=== PATIENT | male | born 1950 | race Caucasian/White ===

== ENCOUNTER 2021-09-16 11:25 | Emergency (ER) | payer OTHER ==
[2021-09-16] MEDS ORDERED: NALOXONE 0.4 MG/ML 1 ML VIAL IVP STA (11:27)
[2021-09-16] MEDS ORDERED: NALOXONE 0.4 MG/ML 10 ML VIAL IVP PRN (11:30)
[2021-09-16] MEDS ORDERED: SUCCINYLCHOLINE CHLORIDE 200 MG/10 ML VIAL IV STA (11:32)
[2021-09-16] MEDS ORDERED: MIDAZOLAM 1 MG/ML 5 ML VIAL IV STA ×3 (11:32→12:47)
[2021-09-16 11:36] LABS: Glucose,Whole Blood 122 mg/dL (70-110)
[2021-09-16] MEDS ORDERED: SODIUM CHLORIDE 0.9% 500 ML 500 ML IV STA (11:46)
--- NOTE | 2021-09-16 12:01 | XR ---
EXAMINATION TYPE: XR chest 1V portable DATE OF EXAM: 09/16/2021 COMPARISON: NONE HISTORY: Postintubation TECHNIQUE: Single frontal view of the chest is obtained. FINDINGS: ET tube approximately 2.3 cm above jaleesa. Right-sided Mediport with the tip overlying the SVC and no pneumothorax. Left basilar consolidation and small effusion. Suspect underlying COPD and chronic interstitial lung disease. Heart size normal. Prominent bowel loops in the upper abdomen nons pecific. IMPRESSION: 1. Left basilar atelectasis or infiltrate with findings suggestive of COPD and probable chronic inter stitial lung disease. 2. ET tube 2.3 cm above jaleesa
[2021-09-16 12:15] LABS: Basophils % (A) 0 %; Eosinophils # (A) 0.1 k/uL (0-0.7); Eosinophils % (A) 1 %; HCT 51.5 % (39.0-53.0); HGB 15.8 gm/dL (13.0-17.5); Hypochromasia Slight; Lymphocytes # (A) 0.9 k/uL (1.0-4.8); Lymphocytes % (A) 4 %; MCH 29.9 pg (25.0-35.0); MCHC 30.7 g/dL (31.0-37.0); MCV 97.4 fL (80.0-100.0); Mean Platelet Volume 7.3; Monocytes % (A) 5 %; Neutrophils # (A) 17.8 k/uL (1.3-7.7); Neutrophils % (A) 89 %; Platelet Count 417 k/uL (150-450); RBC 5.28 m/uL (4.30-5.90); RDW 13.6 % (11.5-15.5); WBC 19.9 k/uL (3.8-10.6)
[2021-09-16 12:24] LABS: Partial Thromboplastin Time 23.5 sec (22.0-30.0); Prothrombin Time 10.9 sec (9.0-12.0)
[2021-09-16 12:33] LABS: Albumin 3.9 g/dL (3.5-5.0); Calcium 9.3 mg/dL (8.4-10.2); Magnesium 2.2 mg/dL (1.6-2.3); Potassium 5.7 mmol/L (3.5-5.1); Total Bilirubin 0.5 mg/dL (0.2-1.3); Total Protein 7.2 g/dL (6.3-8.2)
[2021-09-16] MEDS ORDERED: SODIUM CHLORIDE 0.9% 1,000 ML IV ONE ×2 (12:36→14:00)
[2021-09-16 12:42] LABS: ABG Base Excess 0.4 mmol/L; ABG HCO3 29 mmol/L (21-25); ABG PO2 320 mmHg (83-108); ABG TCO2 31 mmol/L (19-24); Allen Test Performed? Yes
--- NOTE | 2021-09-16 13:07 | ED ---
General Adult HPI - General Chief complaint: Shortness of Breath Stated complaint: ALCIDES Time Seen by Provider: 09/16/21 11:25 Source: patient, EMS, RN notes reviewed, old records reviewed Mode of arrival: EMS Limitations: altered mental status - History of Present Illness Initial comments: This is a 71-year-old male who presents to the emergency department we were told he had esophageal cancer and just had a port placed yesterday. Patient was found unresponsive this morning by his roommate and having uneven respirations. When EMS arrived he did not respond to them either and he continued to have slight apneic spells with very uneven respiratory rate. No further history was available at this time. - Related Data Home Medications Medication Instructions Recorded Confirmed Republic Carbonate ER [Lithobid] 675 mg PO DAILY 09/16/21 09/16/21 OLANZapine 15 mg PO HS 09/16/21 09/16/21 Ondansetron [Zofran] 4 mg PO Q8H PRN 09/16/21 09/16/21 Pantoprazole [Protonix] 40 mg PO DAILY 09/16/21 09/16/21 oxyCODONE HCL [oxyCODONE HCL (IR)] 10 mg PO Q6H PRN 09/16/21 09/16/21 Allergies Allergy/AdvReac Type Severity Reaction Status Date / Time No Known Allergies Allergy Unverified 09/16/21 13:25 Review of Systems ROS Statement: Those systems with pertinent positive or pertinent negative responses have been documented in the HPI. ROS Other: All systems not noted in ROS Statement are negative. Past Medical History Additional Past Medical History / Comment(s): esophageal cancer History of Any Multi-Drug Resistant Organisms: Unobtainable Past Surgical History: No Surgical Hx Reported Past Psychological History: Unable to Obtain Smoking Status: Unknown if ever smoked Past Alcohol Use History: Unable to Obtain Past Drug Use History: Unable to Obtain General Exam - General Exam Comments Initial Comments: GENERAL: Patient is well-developed and well-nourished. Patient is nontoxic and well- hydrated and is in moderate distress. ENT: Neck is soft and supple. No significant lymphadenopathy is noted. Oropharynx is clear. Moist mucous membranes. Neck has full range of motion without eliciting any pain. EYES: The sclera were anicteric and conjunctiva were pink and moist. Extraocular movements were intact and pupils were equal round and reactive to light. Eyelids were unremarkable. PULMONARY: Labored respirations with periodic apneic spells for 58 seconds. CARDIOVASCULAR: There is a regular rate and rhythm without any murmurs gallops or rubs. ABDOMEN: Soft and nontender with normal bowel sounds. SKIN: Skin is clear with no lesions or rashes and otherwise unremarkable. NEUROLOGIC: Patient is alert and oriented 0 unable to follow even simple commands. MUSCULOSKELETAL: Normal extremities with adequate strength and full range of motion. No lower extremity swelling or edema. No calf tenderness. LYMPHATICS: No significant lymphadenopathy is noted PSYCHIATRIC: Unable to assess Limitations: altered mental status Course Vital Signs 09/16/21 09/16/21 09/16/21 11:26 11:27 11:30 Temperature Pulse Rate 92 Respiratory 8 L 8 L 10 L Rate Blood Pressure 95/73 O2 Sat by Pulse 89 L Oximetry Fraction of Inspired Oxygen (FIO2) 09/16/21 09/16/21 09/16/21 11:55 12:07 12:14 Temperature Pulse Rate 107 H Respiratory 12 20 Rate Blood Pressure 100/69 O2 Sat by Pulse 100 Oximetry Fraction of 100 100 Inspired Oxygen (FIO2) 09/16/21 09/16/21 09/16/21 12:18 12:27 12:37 Temperature 97.6 F Pulse Rate 101 H 101 H 97 Respiratory 12 12 12 Rate Blood Pressure 86/62 80/70 98/73 O2 Sat by Pulse 100 100 100 Oximetry Fraction of Inspired Oxygen (FIO2) 09/16/21 09/16/21 09/16/21 12:47 12:50 12:57 Temperature Pulse Rate 98 100 Respiratory 12 16 Rate Blood Pressure 92/73 95/61 O2 Sat by Pulse 100 100 Oximetry Fraction of 75 Inspired Oxygen (FIO2) 09/16/21 09/16/21 09/16/21 13:27 13:30 14:00 Temperature Pulse Rate 92 73 Respiratory 16 18 Rate Blood Pressure 87/66 70/50 O2 Sat by Pulse 99 96 Oximetry Fraction of 60 Inspired Oxygen (FIO2) 09/16/21 09/16/21 09/16/21 14:22 14:25 14:31 Temperature Pulse Rate 85 75 Respiratory 18 18 Rate Blood Pressure 87/58 99/76 O2 Sat by Pulse 97 100 Oximetry Fraction of 100 Inspired Oxygen (FIO2) 09/16/21 09/16/21 15:16 15:20 Temperature Pulse Rate 67 Respiratory 18 Rate Blood Pressure 99/74 O2 Sat by Pulse 99 Oximetry Fraction of 100 Inspired Oxygen (FIO2) Procedures - Procedures Initial comment: I got blood for an ABG femoral right femoral artery. - Intubation Sedative: Versed Paralytic: Succinylcholine Laryngoscope: Coon Size: 3 ET Tube Size: 7.5 Tube Secured Location: teeth Tube Placement Confirmation: visualized tube passing through cords, equal breath sounds bilaterally, no breath sounds over epigastrium, confirmation by capnometry Patient Tolerated Procedure: well Intubation Complications: none Medical Decision Making - Medical Decision Making Patient's sugar was checked it was in the normal range. Patient was also given Narcan it had no effect. Patient continued to have very uneven respirations with apneic periods. Patient was satting in the high 80s. At this point time I intubated the patient. EKG shows sinus rhythm at 89 bpm TN interval 235 QRS is 170 QT interval 380 QTC is 427. Patient's EKG shows no ST segment Patient started on 2 g of Rocephin. Patient received 2 L of IV fluid. Patient's started on Levophed because patient started becoming hypotensive.. Family indicated to me that the patient is a no CPR no trach and no feeding tube. I spoke with Dr. Diaz at [facility] and he accepted the transfer - Lab Data Result diagrams: 09/16/21 12:05 09/16/21 12:05 Lab Results 09/16/21 09/16/21 09/16/21 Range/Units 11:30 12:05 12:05 WBC 19.9 H (3.8-10.6) k/uL RBC 5.28 (4.30-5.90) m/uL Hgb 15.8 (13.0-17.5) gm/dL Hct 51.5 (39.0-53.0) % MCV 97.4 (80.0-100.0) fL MCH 29.9 (25.0-35.0) pg MCHC 30.7 L (31.0-37.0) g/dL RDW 13.6 (11.5-15.5) % Plt Count 417 (150-450) k/uL MPV 7.3 Neutrophils % 89 % Lymphocytes % 4 % Monocytes % 5 % Eosinophils % 1 % Basophils % 0 % Neutrophils # 17.8 H (1.3-7.7) k/uL Lymphocytes # 0.9 L (1.0-4.8) k/uL Monocytes # 1.0 (0-1.0) k/uL Eosinophils # 0.1 (0-0.7) k/uL Basophils # 0.0 (0-0.2) k/uL Hypochromasia Slight PT 10.9 (9.0-12.0) sec INR 1.0 (<1.2) APTT 23.5 (22.0-30.0) sec Sample Site ABG pH (7.35-7.45) ABG pCO2 (35-45) mmHg ABG pO2 (83-108) mmHg ABG HCO3 (21-25) mmol/L ABG Total CO2 (19-24) mmol/L ABG O2 Saturation (94-97) % ABG Base Excess mmol/L Avelino Test FiO2 % Sodium (137-145) mmol/L Potassium (3.5-5.1) mmol/L Chloride (98-107) mmol/L Carbon Dioxide (22-30) mmol/L Anion Gap mmol/L BUN (9-20) mg/dL Creatinine (0.66-1.25) mg/dL Est GFR (CKD-EPI)AfAm (>60 ml/min/1.73 sqM) Est GFR (CKD-EPI)NonAf (>60 ml/min/1.73 sqM) Glucose (74-99) mg/dL POC Glucose (mg/dL) 122 H (70-110) mg/dL POC Glu Finger Waver ID Mariama Torres Lactic Ac Sepsis Rflx Plasma Lactic Acid Pavel (0.7-2.0) mmol/L Calcium (8.4-10.2) mg/dL Magnesium (1.6-2.3) mg/dL Total Bilirubin (0.2-1.3) mg/dL AST (17-59) U/L ALT (4-49) U/L Alkaline Phosphatase (38-126) U/L Troponin I (0.000-0.034) ng/mL Total Protein (6.3-8.2) g/dL Albumin (3.5-5.0) g/dL 09/16/21 09/16/21 09/16/21 Range/Units 12:05 12:05 12:05 WBC (3.8-10.6) k/uL RBC (4.30-5.90) m/uL Hgb (13.0-17.5) gm/dL Hct (39.0-53.0) % MCV (80.0-100.0) fL MCH (25.0-35.0) pg MCHC (31.0-37.0) g/dL RDW (11.5-15.5) % Plt Count (150-450) k/uL MPV Neutrophils % % Lymphocytes % % Monocytes % % Eosinophils % % Basophils % % Neutrophils # (1.3-7.7) k/uL Lymphocytes # (1.0-4.8) k/uL Monocytes # (0-1.0) k/uL Eosinophils # (0-0.7) k/uL Basophils # (0-0.2) k/uL Hypochromasia PT (9.0-12.0) sec INR (<1.2) APTT (22.0-30.0) sec Sample Site ABG pH (7.35-7.45) ABG pCO2 (35-45) mmHg ABG pO2 (83-108) mmHg ABG HCO3 (21-25) mmol/L ABG Total CO2 (19-24) mmol/L ABG O2 Saturation (94-97) % ABG Base Excess mmol/L Avelino Test FiO2 % Sodium 137 (137-145) mmol/L Potassium 5.7 H (3.5-5.1) mmol/L Chloride 98 (98-107) mmol/L Carbon Dioxide 27 (22-30) mmol/L Anion Gap 12 mmol/L BUN 28 H (9-20) mg/dL Creatinine 1.00 (0.66-1.25) mg/dL Est GFR (CKD-EPI)AfAm 88 (>60 ml/min/1.73 sqM) Est GFR (CKD-EPI)NonAf 77 (>60 ml/min/1.73 sqM) Glucose 150 H (74-99) mg/dL POC Glucose (mg/dL) (70-110) mg/dL POC Glu Finger Waver ID Lactic Ac Sepsis Rflx Plasma Lactic Acid Pavel 3.5 H* (0.7-2.0) mmol/L Calcium 9.3 (8.4-10.2) mg/dL Magnesium 2.2 (1.6-2.3) mg/dL Total Bilirubin 0.5 (0.2-1.3) mg/dL AST 49 (17-59) U/L ALT 38 (4-49) U/L Alkaline Phosphatase 77 (38-126) U/L Troponin I 0.281 H* (0.000-0.034) ng/mL Total Protein 7.2 (6.3-8.2) g/dL Albumin 3.9 (3.5-5.0) g/dL 09/16/21 09/16/21 Range/Units 12:37 12:40 WBC (3.8-10.6) k/uL RBC (4.30-5.90) m/uL Hgb (13.0-17.5) gm/dL Hct (39.0-53.0) % MCV (80.0-100.0) fL MCH (25.0-35.0) pg MCHC (31.0-37.0) g/dL RDW (11.5-15.5) % Plt Count (150-450) k/uL MPV Neutrophils % % Lymphocytes % % Monocytes % % Eosinophils % % Basophils % % Neutrophils # (1.3-7.7) k/uL Lymphocytes # (1.0-4.8) k/uL Monocytes # (0-1.0) k/uL Eosinophils # (0-0.7) k/uL Basophils # (0-0.2) k/uL Hypochromasia PT (9.0-12.0) sec INR (<1.2) APTT (22.0-30.0) sec Sample Site Right Femoral ABG pH 7.19 L* (7.35-7.45) ABG pCO2 75 H* (35-45) mmHg ABG pO2 320 H (83-108) mmHg ABG HCO3 29 H (21-25) mmol/L ABG Total CO2 31 H (19-24) mmol/L ABG O2 Saturation 100.0 H (94-97) % ABG Base Excess 0.4 mmol/L Avleino Test Yes FiO2 100 % Sodium (137-145) mmol/L Potassium (3.5-5.1) mmol/L Chloride (98-107) mmol/L Carbon Dioxide (22-30) mmol/L Anion Gap mmol/L BUN (9-20) mg/dL Creatinine (0.66-1.25) mg/dL Est GFR (CKD-EPI)AfAm (>60 ml/min/1.73 sqM) Est GFR (CKD-EPI)NonAf (>60 ml/min/1.73 sqM) Glucose (74-99) mg/dL POC Glucose (mg/dL) (70-110) mg/dL POC Glu Finger Waver ID Lactic Ac Sepsis Rflx Y Plasma Lactic Acid Pavel (0.7-2.0) mmol/L Calcium (8.4-10.2) mg/dL Magnesium (1.6-2.3) mg/dL Total Bilirubin (0.2-1.3) mg/dL AST (17-59) U/L ALT (4-49) U/L Alkaline Phosphatase (38-126) U/L Troponin I (0.000-0.034) ng/mL Total Protein (6.3-8.2) g/dL Albumin (3.5-5.0) g/dL Critical Care Time Critical Care Time: Yes Total Critical Care Time: 45 Disposition Clinical Impression: Respiratory failure, Unresponsive, Pneumonia, Sepsis, Elevated troponin, Laryngeal mass Disposition: OTHER INSTITUTION NOT DEFINED Referrals: Obdulio Johnson DO [Primary Care Provider] - 1-2 days Time of Disposition: 14:17 - Out of Hospital Transfer - Req. Specs Out of Hospital Transfer - Requested Specifics: Other Emergency Center ([facility])
[2021-09-16] MEDS ORDERED: LORazepam 2 MG/ML INJ IV STA ×3 (13:31→15:40)
--- NOTE | 2021-09-16 13:43 | XR ---
EXAMINATION TYPE: XR chest 1V confirm line [facility] DATE OF EXAM: 09/16/2021 COMPARISON: 09/16/2021 HISTORY: ET tube placement TECHNIQUE: Single frontal view of the chest is obtained. FINDINGS: ET tube approximately 3.2 cm above jaleesa. Right-sided Mediport seen with the tip overlyin g the SVC and no pneumothorax. There is increasing left-sided consolidation and pleural effusion. Orly pect underlying COPD and chronic interstitial lung disease. Heart size is stable. NG tube not well se en. IMPRESSION: 1. Left-sided infiltrate and pleural effusion have increased. Correlate for COPD. 2. ET tube stable. NG tube not seen with certainty.
[2021-09-16 13:46] LABS: ABG PH 7.19 (7.35-7.45)
[2021-09-16 13:47] LABS: ABG PCO2 75 mmHg (35-45)
--- NOTE | 2021-09-16 13:48 | CT ---
EXAMINATION TYPE: CT brain wo con DATE OF EXAM: 09/16/2021 COMPARISON: None HISTORY: Altered mental status CT DLP: 1147.[address] of the brain was performed. The ventricles, basal cisterns and sulci overlying the cerebral convexities demonstrate mild enlargem ent. There is no evidence for intracranial hemorrhage or sulcal effacement. There is decreased attenuation about the periventricular white matter and deep white matter of both c erebral hemispheres, compatible with chronic small vessel ischemia. Differential diagnosis does inclu de demyelination. No mass effects are seen.No midline shift. Osseous calvarium is intact. If symptoms persist consider MRI. IMPRESSION: 1. Age related atrophic and chronic small vessel ischemic change without acute intracranial process s een at this time.
[2021-09-16] MEDS ORDERED: NOREPINEPHRINE 8 MG in SODIUM CHLORIDE 0.9% 250 ML IV ONE (14:14)
[2021-09-16] MEDS ORDERED: HYDROCORTISONE SUCCINATE 100 MG/2 ML VIAL IV STA (14:18)
[2021-09-16] MEDS ORDERED: NOREPINEPHRINE 4 MG in SODIUM CHLORIDE 0.9% 250 ML IV ONE (14:19)
[2021-09-16] MEDS ORDERED: VANCOMYCIN IV PER PHARMACY 1 EACH MISC MISCELLANE PRN (14:50)
--- NOTE | 2021-09-16 15:00 | CT ---
EXAMINATION TYPE: CT soft tissue neck w con DATE OF EXAM: 09/16/2021 COMPARISON: 08/02/2021 HISTORY: Altered mental status CT DLP: 300 mGycm CONTRAST: Patient injected with 300 mL of Isovue 300. TECHNIQUE: Axial images at 3 mm thick sections. Reconstructed images in the coronal plane and sagitt al plane are reviewed. FINDINGS: Limited CT sections are obtained the lung apices. The lung apices appear clear. Patient is intubated with the tip above the jaleesa. Nasogastric tube transverses the field of view. CT neck: The torus tubarius and fossa of Rosenmuller are poorly delineated with fluid in the nasal pa ssage due to intubation. Fluid is within the sphenoid sinuses which could be secondary to intubation. Supplier Quality Engineer spaces are normal. Mucosal thickening is within ethmoid air cells. Frontal sinuses and m axillary sinuses appear clear. Parotid glands appear normal and symmetrical. Submandibular glands, are normal. Parapharyngeal spac es are normal. A 1.0 cm right jugulodigastric lymph node is present. There is some scattered small lymph nodes prese nt. Vascular calcifications within the carotid vessels and at the bifurcation. Significant flow-limiting stenosis is not identified. The hypopharynx is opacified. Vocal cord level is not well-visualized. Thyroid as visualized is normal. Degenerative changes are the cervical spine. Degenerative disc changes are present within the cervica l spine IMPRESSIONS: 1. The patient is intubated and has a nasogastric tube. Secondary changes often associated with intub ation include opacification to the nasal passages fluid within paranasal sinuses and non aeration thr ough the hypopharynx; these findings are present on the current exam which limits evaluation for unde rlying abnormality. 2. No obvious dilated esophagus within the proximal portion visualized. 3. 1 cm jugulodigastric lymph node on the right.
[2021-09-16] MEDS ORDERED: VANCOMYCIN 1,500 MG in SODIUM CHLORIDE 0.9% 250 ML IVPB ONE (15:15)
[2021-09-16] MEDS ORDERED: DEXAMETHASONE SOD PHOSPHATE 10 MG/ML 1 ML VIAL IVP STA (15:41)
[2021-09-16 16:21] VITALS: RESP 18; TEMP 98
[2021-09-16 16:26] VITALS: BP 139/72; PULSE 70
[2021-09-17] MEDS ORDERED: VANCOMYCIN 1,500 MG in SODIUM CHLORIDE 0.9% 250 ML IVPB SCH ×2
== END 2021-09-16 16:23 | disposition other institution (70) ==
LOC: EDBD → EC 11:25
DX: J96.90 Respiratory failure, unspecified, unspecified whether with hypoxia or hypercapnia (principal); J18.9 Pneumonia, unspecified organism; A41.9 Sepsis, unspecified organism; R77.8 Other specified abnormalities of plasma proteins; J38.7 Other diseases of larynx
CPT/HCPCS: 96365 ×2; 96375 ×7; 96376 ×4; 96361 ×3; 31500 ×2; 99291 ×2; 36415; 94002; 93005; 80053; 82805; 83605; 80178; 83735; 84484; 85025; 85610; 85730; 87040; 87070; 87205; 71045; 70491; 70450; J3370; J0330; J2060; J1100; J2310 ×2; J1720; J0696; J2250; J2704; Q9967